=== PATIENT | male | born 1965 | race Caucasian/White ===

== ENCOUNTER 2018-03-20 00:49 | Emergency (ER) | payer OTHER ==
[2018-03-20 01:03] VITALS: BP 129/92
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
== END 2018-03-20 01:33 ==
DX: F10.921 Alcohol use, unspecified with intoxication delirium (principal); S00.81XA Abrasion of other part of head, initial encounter; V29.9XXA Motorcycle rider (driver) (passenger) injured in unspecified traffic accident, initial encounter